=== PATIENT | male | born 1950 | race Caucasian/White ===

== ENCOUNTER 2025-04-17 06:53 | Emergency (ER) | payer OTHER, MEDICAID ==
[~2025-04-17] VITALS: Ht 170.2 cm; Wt 74.8 kg
[2025-04-17 07:02] VITALS: TEMP 98.4
[2025-04-17] MEDS ORDERED: MAG HYDROX/AL HYDROX/SIMETH 30 ML UDC ONE (07:11)
[2025-04-17] MEDS ORDERED: FAMOTIDINE/PF INJ 20 MG/2 ML VIAL IV ONE (07:11)
[2025-04-17] MEDS ORDERED: LIDOCAINE VISCOUS 2% UD 15 ML UDC ONE (07:11)
[2025-04-17 07:15] LABS: PLATELET COUNT (AUTO) 173 K/uL (150-450); RED BLOOD CELL COUNT(AUTO) 4.99 MIL/uL (4.5-6.0); RED CELL DISTRIBUTION WIDTH 13.9 % (11.5-15.0); WHITE BLOOD COUNT (AUTO) 7.0 K/uL (4.3-11.0)
[2025-04-17] MEDS: MAG HYDROX/AL HYDROX/SIMETH 30 ML UDC PO ONE (07:17)
[2025-04-17] MEDS: FAMOTIDINE/PF INJ 20 MG/2 ML VIAL IV ONE (07:17)
[2025-04-17] MEDS: IV NS 0.9% 1,000 ML BAG IV ONE (07:17)
[2025-04-17] MEDS: LIDOCAINE VISCOUS 2% UD 15 ML UDC MM ONE (07:17)
[2025-04-17 07:39] LABS: CALCIUM, SERUM 9.2 mg/dL (8.5-10.1); CREATININE 1.6 mg/dL (0.6-1.3); SODIUM SERUM 141 mmol/L (136-145); UREA NITROGEN, BLOOD 25 mg/dL (7-18)
[2025-04-17 07:45] LABS: ASPARTATE AMINOTRANSFERASE 18.0 U/L (15-37); TOTAL PROTEIN, SERUM 7.4 g/dL (6.4-8.2)
[2025-04-17] MEDS ORDERED: FAMO-131 PO (08:36)
[2025-04-17 08:52] VITALS: BP 124/78; O2SAT 97
== END 2025-04-17 08:58 | disposition home or self-care (01) ==
LOC: ER 06:57
DX: R10.13 Epigastric pain (principal); R42 Dizziness and giddiness; E86.0 Dehydration; E87.6 Hypokalemia; I11.9 Hypertensive heart disease without heart failure; Z60.2 Problems related to living alone
CPT/HCPCS: 99285; 96374; 71045; 96361; 93005 ×2; 85025; 80048; 83690; 80076; 36415; 84484; J1308; J7030